=== PATIENT | female | born 2000 | race Caucasian/White ===

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

== ENCOUNTER 2022-01-01 15:51 | Inpatient (IN) ==
[2022-01-01 16:43] LABS: Bilirubin,Urine Negative (Negative); Blood,Urine Negative (Negative); Clarity,Urine Clear (Clear); Color,Urine Colorless (Yellow); Glucose,Urine (UA) Normal (Normal); Ketones,Urine Negative (Negative); Leukocyte Esterase,Urine Negative (Negative); Nitrite,Urine Negative (Negative); Protein,Urine Negative (Neg-Trace); Urobilinogen,Urine Normal (Normal)
[2022-01-01 16:47] LABS: Basophils % 0.7 %; Eosinophils # 0.1 K/mcL (0.0-0.6); Eosinophils % 1.2 %; Hematocrit 41.6 % (35.3-44.9); Hemoglobin 14.3 g/dL (11.5-15.4); Immature Granulocytes % 0.2 % (0-4); Lymphocytes % 35.5 %; Mean Corpuscular HGB Conc 34.4 g/dL (31.6-35.5); Mean Corpuscular Hemoglobin 32.5 pg (28.0-33.3); Mean Corpuscular Volume 94.5 fL (83.0-100.0); Mean Platelet Volume 9.9 fL (9.4-12.4); Monocytes # 0.6 K/mcL (0.0-1.3); Monocytes % 10.3 %; Neutrophils # 2.9 K/mcL (1.6-8.9); Platelet Count 221 K/mcL (140-400); Red Cell Distribution Width 12.7 % (11.5-14.5); Segmented Neutrophils % 52.1 %; White Blood Count 5.6 K/mcL (4.3-11.1)
[2022-01-01 16:51] LABS: Amphetamine Screen,Urine Negative ng/mL (Cutoff=1000); Barbiturate Screen,Urine Negative ng/mL (Cutoff=200); Benzodiazepines Screen,Urine Negative ng/mL (Cutoff=200); Cannabinoid Screen,Urine Negative ng/mL (Cutoff = 50); Cocaine Screen,Urine Negative ng/mL (Cutoff= 300); Opiate Screen,Urine Negative ng/mL (Cutoff=300); Phencyclidine Screen,Urine Negative ng/mL (Cutoff=25)
[2022-01-01 17:01] LABS: Acetaminophen < 10 mcg/mL (10-20); BUN/Creatinine Ratio 10 (6-26); Blood Urea Nitrogen 7 mg/dL (6-20); Calcium 8.8 mg/dL (8.6-10.3); Carbon Dioxide 26 mEq/L (23-29); Chloride 108 mEq/L (98-107); Ethanol < 10 mg/dL (Less than 10); Glucose 84 mg/dL (70-105); Osmolality,Calculated 277 (280-300); Potassium 3.5 mEq/L (3.5-5.1); Salicylate < 2.5 mg/dL (15.0-30.0); Sodium 135 mEq/L (136-145)
[2022-01-01 19:15] LABS: Influenza A PCR Negative (Negative); Influenza B PCR Negative (Negative); Resp. Syncytial Virus PCR Negative (Negative)
[2022-01-01 19:18] LABS: SARS-CoV-2 by PCR (In House) Negative (Negative)
[2022-01-01] MEDS ORDERED: haloperidoL 5 MG TABLET PO PRN (20:52)
[2022-01-01] MEDS ORDERED: *HR* LORazepam 2 MG/ML VIAL IM PRN (20:52)
[2022-01-01] MEDS ORDERED: *HR* LORazepam 1 MG TABLET PO PRN (20:52)
[2022-01-01] MEDS ORDERED: traZODone 50 MG TABLET PO PRN (20:52)
[2022-01-01] MEDS ORDERED: Haloperidol Lactate 5 MG/ML VIAL IM PRN (20:52)
[2022-01-01] MEDS ORDERED: Ibuprofen 400 MG TABLET PO PRN (21:00)
[2022-01-01] MEDS: Ziprasidone 20 MG CAPSULE PO SCH (21:33)
[2022-01-02] MEDS ORDERED: lamoTRIgine 25 MG TABLET PO SCH (09:00)
[2022-01-02] MEDS: Ziprasidone 20 MG CAPSULE PO SCH (20:37)
[2022-01-02] MEDS: hydrOXYzine pamoate 25 MG CAPSULE PO PRN (21:35)
[2022-01-03] MEDS: lamoTRIgine 25 MG TABLET PO SCH (09:53)
[2022-01-03] MEDS: hydrOXYzine pamoate 25 MG CAPSULE PO PRN (23:38)
[2022-01-04 09:45] VITALS: BP 124/86; PULSE 89; TEMP 97.7; O2SAT 97
[2022-01-04] MEDS: lamoTRIgine 25 MG TABLET PO SCH (11:28)
== END 2022-01-04 15:02 | disposition home or self-care (01) | DRG 751 ==
LOC: EMEROOARM 15:51 → 1ANU 18:08
PROVIDERS: ADMIT Psychiatry & Neurology Psychiatry; ATTEND Psychiatry & Neurology Psychiatry